=== PATIENT | female | born 1960 ===

== ENCOUNTER 2024-12-12 16:30 | Outpatient (AMB) | payer MEDICARE, MEDICAID, SELFPAY ==
--- NOTE | 2024-12-12 16:25 | A.OFFPC_ITS ---
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: No Accompanied by: Self / Same As Patient Allergies No Known Allergies Allergy (Verified 12/12/24 16:25) Tobacco use date assessed: 12/12/24 Fall risk assessment: No Falls in past year Last assessed Fall Risk: 12/12/24 Dental Screening Dental Screen Date: 12/12/24 Did you have a dental visit in the last 12 months?: Yes Did you have a dental problem in the last 6 months where you did not have access to dental care?: No Was dental information given to patient?: Patient has dentist HPI HPI Comments History of Present Illness Details History of Present Illness The patient is a 64-year-old female presenting for an annual physical examination and medication review for hypertension. Essential Hypertension: - The patient reports dissatisfaction wi th her current antihypertensive medication, losartan, due to perceived ineffectiveness and potential health concerns. - She is seeking a change in her medicat ion regimen. Hypothyroidism: - The patient is on thyroid medication f ollowing thyroid surgery. Rheumatoid Arthritis: -the patient states she has a history of rheumatoid arthritis but she has never taken any medication for it and she has never seen a digital content coordinator Hyperlipidemia: - The patient mentions hyperlipidemia as part of her medical history. Preventative Care: - The patient underwent a colonoscopy in September, which was normal. - She also had a mammogram in August, whic h was reported as normal. -she also had a Pap smear performed all her preventive maintenance was performed in [facility] to few months ago do not have medical records to review Health Maintenance - Colonoscopy performed in September with nor mal results. - Mammography conducted in August with nor mal findings. -cervical cancer screening conducted in August with normal findings Review of Systems 10-point ROS reviewed and negative excep t as noted in HPI Past Medical History - History of Essential Hypertension - History of Hypothyroidism - History of Rheumatoid Arthritis - History of Hyperlipidemia Physical Exam General: Well-appearing, in no acute distress. Vital signs: Within normal limits. HEENT: Normocephalic, atraumatic. PERRLA, EOMI. Conjunctiva clear, sclera anicteric. Oropharynx clear, mucous membranes moist. TMs intact bilaterally. Neck: Supple, no lymphadenopathy, no thyromegaly, no JVD or carotid bruits. Cardiovascular: RRR, normal S1/S2, no murmurs, rubs, or gallops. Peripheral pulses 2+ and symmetric. No edema. Respiratory: Lungs clear to auscultation bilaterally, no wheezes, rales, or rhonchi. Normal effort. Abdomen: Soft, non-tender, non-distended. Normoactive bowel sounds. No hepatosplenomegaly, no masses. MSK: Full range of motion, no joint swelling or deformity. Normal gait. Skin: Warm, dry, intact. No rashes, lesions, or pallor. Neuro: Alert and oriented x3. Cranial nerves II-XII intact. Strength 5/5 throughout. Sensation intact. Reflexes 2+ symmetric. Normal coordination and gait. Psych: Appropriate mood and affect. Normal judgment and insight. Discussion Notes I discussed with the patient the need to review her current medication regimen for hypertension, particularly the use of losartan, and the potential for changing her medication based on lab results. We also talked about the importance of regular screenings, including colonoscopy and mammography, which she has completed recently with normal results. Plan - Review and potentially adjust antihype rtensive medication based on lab results. - Continue thyroid medication and monito r thyroid function tests. - Encourage follow-up with a rheumatolog ist for rheumatoid arthritis management. - Maintain current management for hyperl ipidemia and monitor lipid levels. - Continue regular preventative screenin , including colonoscopy and mammography. Patient Instructions - Follow up for lab tests to review medi cation needs. - Continue taking thyroid medication as prescribed. - Schedule an appointment with a rheumat ologist for arthritis management. - Keep up with regular health screenings like colonoscopy and mammography. [facility] Family History Father No problems noted. Mother No problems noted. Social History Housing: Apartment Alcohol intake: current Alcohol intake frequency: does not drink Patient Tobacco Use Status: Never used Tobacco service: No Current occupational status: retired Cognitive needs: No Hearing needs: No Vision needs: Yes (rx glasses) Questionnaire PHQ-9 Over the last 2 weeks, how often have you been bothered by any of the following problems? 1. Little interest or pleasure in doing things: not at all 2. Feeling down, depressed, or hopeless: not at all 3. Trouble falling or staying asleep, or sleeping too much: not at all 4. Feeling tired or having little energy: not at all 5. Poor appetite or overeating: not at all 6. Feeling bad about yourself - or that you are a failure or have let yourself or your family down: not at all 7. Trouble concentrating on things, such as reading the newspaper or watching television: not at all 8. Moving or speaking so slowly that other people could have noticed. Or the opposite - being so fidgety or restless that you have been moving around a lot more than usual: not at all 9. Thoughts that you would be better off or of hurting yourself in some way: not at all Total score: 0 Depression Screening Interpretation: Negative Depression Screening Done: Yes Source: Developed by Drs. Alejandro Shanks, Stephanie Ribeiro, Chet Mcmillan and colleagues, with an educational esperanza from [employer]. Thrive Questionnaire Date Thrive assessed: 12/12/24 I am a: Patient What is your living situation today?: I have a steady place to live Within the past 12 months, did the food you bought not last and you didn't have the money to get more?: Never true Within the past 12 months, did you worry whether your food would run out before you got money to buy more?: Never true Do you have trouble paying for medicines?: No Do you have trouble getting transportation to medical appointments?: No Do you have trouble paying your heating and electricity bill?: No Do you have trouble taking care of your child, family member or friend?: No Do you have trouble with day-to-day activities such as bathing, preparing meals, shopping, managing finances, etc.?: No Are you currently unemployed and looking for a job?: No Are you interested in more education?: No Please select the resources that you would like help with: None Currently or been in a relationship where the following occur: No concerns reported THRIVE Score: 0 AUDIT C Alcohol Use Questionnaire (AUDIT-C) 1. How often do you have a drink containing alcohol?: Never 3. How often do you have six or more drinks on one occasion?: Never Total Score: 0 GUILLERMO-7 AMB Questionnaire GUILLERMO-7 Date GUILLERMO - 7 assessed: 12/12/24 Feeling nervous, anxious, or on edge: 0 = Not at all Not being able to stop or control worryin = Not at all Worrying too much about different things: 0 = Not at all Trouble relaxin = Not at all Being so restless that it is hard to sit still: 0 = Not at all Becoming easily annoyed or irritable: 0 = Not at all Feeling afraid as if something awful might happen: 0 = Not at all Total GUILLERMO-7 score (0-4 normal; 5-9 mild; 10-14 moderate; 15-21 severe): 0 Source: Developed by Drs. Alejandro Shanks, Stephanie Ribeiro, Chet Mcmillan and colleagues, with an educational esperanza from [employer]. Physical exam (Primary Care) Tobacco/Smoking Status: Tobacco use Status Tobacco use date assessed 12/12/24 12/12/24 16:28 Patient Tobacco Use Status Never used Tobacco 12/12/24 16:28 Depression Screening Interpretation: Negative Thrive Assessment: Date of Thrive Assessment Date Thrive assessed 12/12/24 12/12/24 16:30 Currently or been in a relationship where the following occur: No concerns reported Coding Level of Care Code New Pt Prev Care >65yr (70939) Diagnoses Establishing care with new doctor, encounter for Z76.89 Encounter for screening, unspecified Z13.9 Routine screening for STI (sexually transmitted infection) Z11.3 Screening for HIV (human immunodeficiency virus) Z11.4 Screening for depression Z13.31 Screening for diabetes mellitus Z13.1 Screening for lipoid disorders Z13.220 Counseling, unspecified Z71.9 Hypertension I10 Hypothyroid E03.9 Rheumatoid arthritis M06.9 Hyperlipidemia E78.5 Osteoporosis screening Z13.820 Assessment & Plan Assessment & Plan (1) Establishing care with new doctor, encounter for: Code(s): Z76.89 - Persons encountering health services in other specified circumstances (2) Encounter for screening, unspecified: Code(s): Z13.9 - Encounter for screening, unspecified (3) Routine screening for STI (sexually transmitted infection): Code(s): Z11.3 - Encounter for screening for infections with a predominantly sexual mode of transmission (4) Screening for HIV (human immunodeficiency virus): Code(s): Z11.4 - Encounter for screening for human immunodeficiency virus [HIV] (5) Screening for depression: Code(s): Z13.31 - Encounter for screening for depression (6) Screening for diabetes mellitus: Code(s): Z13.1 - Encounter for screening for diabetes mellitus (7) Screening for lipoid disorders: Code(s): Z13.220 - Encounter for screening for lipoid disorders (8) Counseling, unspecified: Code(s): Z71.9 - Counseling, unspecified (9) Hypertension: Code(s): I10 - Essential (primary) hypertension (10) Hypothyroid: Code(s): E03.9 - Hypothyroidism, unspecified (11) Rheumatoid arthritis: Code(s): M06.9 - Rheumatoid arthritis, unspecified (12) Hyperlipidemia: Code(s): E78.5 - Hyperlipidemia, unspecified (13) Osteoporosis screening: Code(s): Z13.820 - Encounter for screening for osteoporosis Plan Orders: Orders Comprehensive Met. Panel Today Z13.9 - Encounter for screening, unspecified, Z76.89 - Persons encountering health services in other specified circumstances Hemoglobin A1c Today Z13.9 - Encounter for screening, unspecified, Z76.89 - Persons encountering health services in other specified circumstances Hepatitis B Surface Antibody Today Z13.9 - Encounter for screening, unspecified, Z76.89 - Persons encountering health services in other specified circumstances Hepatitis B Surface Antigen Today Z13.9 - Encounter for screening, unspecified, Z76.89 - Persons encountering health services in other specified circumstances Hepatitis C Antibody Today Z13.9 - Encounter for screening, unspecified, Z76.89 - Persons encountering health services in other specified circumstances Lipid Panel Today Z13.9 - Encounter for screening, unspecified, Z76.89 - Persons encountering health services in other specified circumstances TSH reflex Free T4 Today Z13.9 - Encounter for screening, unspecified, Z76.89 - Persons encountering health services in other specified circumstances Microalbumin, Random (w Creat) Today Z13.9 - Encounter for screening, unspecified, Z76.89 - Persons encountering health services in other specified circumstances XR DEXA axial skeleton Today Z13.820 - Encounter for screening for osteoporosis Complete Blood Count Auto Diff Today Z13.9 - Encounter for screening, unspecified, Z76.89 - Persons encountering health services in other specified circumstances HIV Ab/Ag Today Z13.9 - Encounter for screening, unspecified, Z76.89 - Persons encountering health services in other specified circumstances Magnesium Today Z13.9 - Encounter for screening, unspecified, Z76.89 - Persons encountering health services in other specified circumstances UA CC w/rflx Micro + Cult Today Z13.9 - Encounter for screening, unspecified, Z76.89 - Persons encountering health services in other specified circumstances Vitamin B12 and Folate Today Z13.9 - Encounter for screening, unspecified, Z76.89 - Persons encountering health services in other specified circumstances Vitamin D 1,25 dihydroxy Today Z13.9 - Encounter for screening, unspecified, Z76.89 - Persons encountering health services in other specified circumstances ECG 12 lead EKG Today I10 - Essential (primary) hypertension Syphilis Screen Today Z13.9 - Encounter for screening, unspecified
[2024-12-12 16:38] VITALS: BP 160/88; PULSE 81; RESP 16; TEMP 36.4; O2SAT 96; BMI 29.0
== END 2024-12-12 16:55 | disposition home or self-care (01) ==
LOC: HO.HMCFMS 16:30
PROVIDERS: PCP Student in an Organized Health Care Education/Training Program; Visit Provider Student in an Organized Health Care Education/Training Program
DX: Z00.00 Encounter for general adult medical examination without abnormal findings (principal); I10 Essential (primary) hypertension; E03.9 Hypothyroidism, unspecified; M06.9 Rheumatoid arthritis, unspecified; E78.5 Hyperlipidemia, unspecified; Z13.820 Encounter for screening for osteoporosis

== ENCOUNTER → 2024-12-12 16:30 | Outpatient (BNVA) | payer MEDICARE, MEDICAID, SELFPAY | PROVIDERS: PCP Student in an Organized Health Care Education/Training Program; Visit Provider Student in an Organized Health Care Education/Training Program | DX: Z00.00 Encounter for general adult medical examination without abnormal findings (principal); I10 Essential (primary) hypertension; E03.9 Hypothyroidism, unspecified; M06.9 Rheumatoid arthritis, unspecified; E78.5 Hyperlipidemia, unspecified; Z13.31 Encounter for screening for depression; Z13.39 Encounter for screening examination for other mental health and behavioral disorders | CPT/HCPCS: 96127; 99387 ==

== ENCOUNTER 2024-12-17 09:53 | Outpatient (REF) | payer MEDICARE, MEDICAID, SELFPAY ==
[2024-12-17 13:29] LABS: Appearance Urine Clear; Glucose Urine UA Negative (Negative); PH 7.0 (5.0-9.0); Specific Gravity - Urine 1.020 (1.005-1.025)
[2024-12-17 13:39] LABS: MANUAL DIFF FLAG NO
[2024-12-17 13:42] LABS: Hematocrit 43.8 % (37.0-47.0); Hemoglobin 14.5 g/dl (12.0-16.0); Imm Gran Abs Auto 0.01 X10*3/uL (0.00-0.03); Imm Gran Pct Auto 0.1 % (0.0-0.4); Lymphocytes Absolute Auto 3.9 X10*3/uL (1.2-4.9); Mean Corpuscular HGB Conc 33.1 g/dl (31.0-35.0); Mean Corpuscular Hemoglobin 30.6 pg (27.0-33.0); Mean Corpuscular Volume 92.4 fL (80.0-98.0); NRBC Abs Auto 0.000 X10*3/uL (0.0-0.012); NRBC Pct Auto 0.0 /100WBC (0.0-0.2); Platelet Count 308 X10*3/uL (160-400); Red Blood Count 4.74 X10*6/uL (4.20-5.50); White Blood Count 6.8 X10*3/uL (4.8-10.8)
[2024-12-17 14:08] LABS: Hemoglobin A1C 128.4789 umol/L; Total Hemoglobin (HGBA1C) 3718.6350 umol/L
[2024-12-17 14:12] LABS: Microalbum/Creatinine Ratio Ur 8.7 ug/mg cr (<30)
[2024-12-17 14:36] LABS: Alanine Aminotransferase 26 U/L (0-31); Albumin Level 4.3 g/dL (3.5-5.0); Alkaline Phosphatase 116 U/L (39-117); Anion Gap 11 (12-20); Aspartate Amino Transferase 38 U/L (5-31); Blood Urea Nitrogen 15 mg/dL (9-16); Calcium 9.8 mg/dL (8.4-10.2); Carbon Dioxide 29 mmol/L (22-29); Chloride 105 mmol/L (96-108); Cholesterol 379 mg/dL (<200); Estimated Glomerular Filt Rate 58; HDL Cholesterol 41 mg/dL (>40); Magnesium 2.5 mg/dL (1.6-2.6); Potassium 4.7 mmol/L (3.3-5.1); Sodium 140 mmol/L (135-145); Total Protein 7.8 g/dL (6.5-8.0); Triglycerides 337 mg/dL (<150)
[2024-12-17 14:50] LABS: Folate 11.8 ng/mL (> or = 4.0); Vitamin B12 574 pg/mL (200-900)
[2024-12-17 15:16] LABS: Free T4 (Free Thyroxine) 1.01 ng/dL (0.71-1.85)
[2024-12-18 08:17] LABS: HBS Num1 0.00 mIU/mL (0-7.99); HBsAGNum1 0.43 S/CO (0.00-0.99); HIV Num 1 0.07 S/CO (0.00-0.99); Hepatitis B Surface Antigen Negative (Negative); ~HepC Num1 0.14 S/CO (0.00-0.79); ~Hepatitis B Surface Antibody NONREACTIVE (Nonreactive); ~Hepatitis C Antibody Nonreactive (Nonreactive)
[2024-12-18 09:08] LABS: Syphilis Screen Nonreactive (Nonreactive)
[2024-12-24 15:54] LABS: VITAMIN D (1,25 OH) D3 72 pg/mL; Vit D (1,25-Dihydroxy) Total 72 pg/mL (18-72); Vitamin D (1,25 OH) D2 <8 pg/mL
== END 2024-12-17 09:54 | disposition home or self-care (01) ==
LOC: HO.HMGCLDS 09:53
PROVIDERS: Visit Provider Student in an Organized Health Care Education/Training Program
DX: Z13.89 Encounter for screening for other disorder (principal); Z76.89 Persons encountering health services in other specified circumstances; Z13.6 Encounter for screening for cardiovascular disorders; Z13.1 Encounter for screening for diabetes mellitus; Z11.4 Encounter for screening for human immunodeficiency virus [HIV]; Z13.29 Encounter for screening for other suspected endocrine disorder
CPT/HCPCS: 36415; 80053; 80061; 81003; 82043; 82570; 82607; 82652; 82746; 83036; 83735; 84439; 84443; 85025; 86706; 86780; 86803; 87340; 87389

== ENCOUNTER 2024-12-31 13:40 | Outpatient (AMB) | payer MEDICARE, MEDICAID, SELFPAY ==
[2024-12-31 14:07] VITALS: BP 148/90; PULSE 82; TEMP 36.6; O2SAT 96; BMI 28.7
--- NOTE | 2024-12-31 14:07 | A.OFFPC_ITS ---
Vital Signs 12/31/24 14:07 Height 5 ft 5.16 in Weight 173 lb 8 oz BMI 28.7 BP 148/90 H Blood Pressure Location Lt brachial Position Sitting Pulse 82 Pulse Source Pulse Oximeter Temp 97.9 F Temp Source Oral Pulse Oximetry (%) 96 Oxygen Delivery Method Room Air Intake Visit Reasons: r/s from 11:15 am Intake Note: physical want to change losartan for bp med. 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 Accompanied by: Self / Same As Patient Allergies No Known Allergies Allergy (Verified 12/31/24 14:07) Tobacco use date assessed: 12/31/24 Fall risk assessment: No Falls in past year Last assessed Fall Risk: 12/31/24 Dental Screening Dental Screen Date: 12/31/24 Did you have a dental visit in the last 12 months?: Yes Did you have a dental problem in the last 6 months where you did not have access to dental care?: No Was dental information given to patient?: Patient has dentist HPI HPI Comments History of Present Illness Details History of Present Illness The patient is a 64-year-old female presenting with hypertension management and evaluation of headaches. Hypertension: - The patient has been experiencing elev ated blood pressure, which may be related to stress. - She was previously on Losartan but exp ressed concerns about its effects. - Amlodipine 10 mg was discussed as a po tential treatment option. - The patient was advised to monitor her blood pressure at home using a machine. Headaches: - The patient reports a long history of headaches, which cause dizziness and a sensation of falling. - Meclizine was prescribed to manage ass ociated vertigo. Hyperlipidemia: - The patient has a history of elevated cholesterol and triglycerides. - She is currently on atorvastatin 40 mg , Hypothyroidism: - The patient's thyroid hormone levels a re significantly elevated, indicating hypothyroidism. - Levothyroxine dosage was increased to 100 mcg to address this issue. - Follow-up blood tests were scheduled f or six weeks to reassess thyroid function. Vertigo: - The patient experiences vertigo, which is being managed with meclizine. Review of Systems - Cardiovascular: Reports elevated blood pressure. Denies chest pain. - Neurological: Reports headaches and di zziness. Denies syncope. 10-point ROS reviewed and negative excep t as noted in HPI Past Medical History - Hypertension - Hyperlipidemia - Hypothyroidism - Vertigo Health Maintenance - Blood pressure monitoring at home was recommended. - Follow-up blood tests for thyroid func tion in six weeks. Physical Exam General: Well-appearing, in no acute distress. Vital signs: Blood pressure is elevated. HEENT: Normocephalic, atraumatic. PERRLA, EOMI. Conjunctiva clear, sclera anicteric. Oropharynx clear, mucous membranes moist. TMs intact bilaterally. Neck: Supple, no lymphadenopathy, no thyromegaly, no JVD or carotid bruits. Cardiovascular: RRR, normal S1/S2, no murmurs, rubs, or gallops. Peripheral pulses 2+ and symmetric. No edema. Respiratory: Lungs clear to auscultation bilaterally, no wheezes, rales, or rhonchi. Normal effort. Abdomen: Soft, non-tender, non-distended. Normoactive bowel sounds. No hepatosplenomegaly, no masses. MSK: Full range of motion, no joint swelling or deformity. Normal gait. Skin: Warm, dry, intact. No rashes, lesions, or pallor. Neuro: Alert and oriented x3. Cranial nerves II-XII intact. Strength 5/5 throughout. Sensation intact. Reflexes 2+ symmetric. Normal coordination and gait. Psych: Appropriate mood and affect. Normal judgment and insight. Plan 1. Hypertension - Amlodipine 10 mg was prescribed to man age blood pressure. - The patient was instructed to monitor blood pressure at home twice daily, in the morning and evening, and report the best of three readings. 2. Headaches - Meclizine was prescribed to manage mariluz tigo associated with headaches. 3. Hyperlipidemia - Atorvastatin 40 mg was continued, with a potential increase to 80 mg if lipid levels do not improve. 4. Hypothyroidism - Levothyroxine dosage was increased to 100 mcg to address elevated thyroid hormone levels. - Follow-up blood tests were scheduled f or six weeks to reassess thyroid function. 5. Vertigo - Meclizine was prescribed to manage mariluz tigo symptoms. Discussion Notes I discussed with the patient the management of her hypertension, including the prescription of Amlodipine and the importance of home blood pressure monitoring. We also addressed her headaches and associated vertigo, prescribing Meclizine for symptom relief. The patient's hyperlipidemia management was reviewed, with atorvastatin continued and potential dosage adjustments discussed. Her hypothyroidism was addressed by increasing her levothyroxine dosage, with follow-up blood tests planned to monitor thyroid function. We emphasized the importance of these interventions and scheduled a follow-up visit in two weeks to reassess her blood pressure management. Patient was informed and verbally consented to the use of an ambient scribe for clinic note documentation during this visit. Patient Instructions - Take Amlodipine 10 mg daily for blood pressure management. - Monitor blood pressure at home twice d aily, in the morning and evening, and report the best of three readings. - Take Meclizine as prescribed for verti go. - Continue atorvastatin 40 mg for choles terol management. - Take levothyroxine 100 mcg on an empty stomach, wait 30 minutes before eating or taking other medications. - Return for follow-up in two weeks to [facility] blood pressure management. Total time spent caring for the patient today was 30 minutes. This includes time spent before the visit reviewing the chart, time spent documenting, and time spent reviewing laboratory results, medications, performing a medically necessary evaluation, counseling on diagnoses, care coordination, ordering appropriate medications, [facility] Family History Father No problems noted. Mother No problems noted. Social History Housing: Apartment Alcohol intake: current Alcohol intake frequency: does not drink Patient Tobacco Use Status: Never used Tobacco service: No Current occupational status: retired Cognitive needs: No Hearing needs: No Vision needs: Yes (rx glasses) Questionnaire PHQ-9 Over the last 2 weeks, how often have you been bothered by any of the following problems? 1. Little interest or pleasure in doing things: not at all 2. Feeling down, depressed, or hopeless: not at all 3. Trouble falling or staying asleep, or sleeping too much: not at all 4. Feeling tired or having little energy: not at all 5. Poor appetite or overeating: not at all 6. Feeling bad about yourself - or that you are a failure or have let yourself or your family down: not at all 7. Trouble concentrating on things, such as reading the newspaper or watching television: not at all 8. Moving or speaking so slowly that other people could have noticed. Or the opposite - being so fidgety or restless that you have been moving around a lot more than usual: not at all 9. Thoughts that you would be better off or of hurting yourself in some way: not at all Total score: 0 Depression Screening Interpretation: Negative Depression Screening Done: Yes Source: Developed by Drs. Alejandro Shanks, Stephanie Ribeiro, Chet Mcmillan and colleagues, with an educational esperanza from [email or web address]. Thrive Questionnaire Date Thrive assessed: 12/31/24 I am a: Patient What is your living situation today?: I have a steady place to live Within the past 12 months, did the food you bought not last and you didn't have the money to get more?: Never true Within the past 12 months, did you worry whether your food would run out before you got money to buy more?: Never true Do you have trouble paying for medicines?: No Do you have trouble getting transportation to medical appointments?: No Do you have trouble paying your heating and electricity bill?: No Do you have trouble taking care of your child, family member or friend?: No Do you have trouble with day-to-day activities such as bathing, preparing meals, shopping, managing finances, etc.?: No Are you currently unemployed and looking for a job?: No Are you interested in more education?: No Please select the resources that you would like help with: None Currently or been in a relationship where the following occur: No concerns reported THRIVE Score: 0 AUDIT C Alcohol Use Questionnaire (AUDIT-C) 1. How often do you have a drink containing alcohol?: Never Total Score: 0 GUILLERMO-7 AMB Questionnaire GUILLERMO-7 Date GUILLERMO - 7 assessed: 12/31/24 Feeling nervous, anxious, or on edge: 1 = Several days Not being able to stop or control worryin = Several days Worrying too much about different things: 1 = Several days Trouble relaxin = Nearly every day Being so restless that it is hard to sit still: 0 = Not at all Becoming easily annoyed or irritable: 1 = Several days Feeling afraid as if something awful might happen: 0 = Not at all Total GUILLERMO-7 score (0-4 normal; 5-9 mild; 10-14 moderate; 15-21 severe): 7 Source: Developed by Stephanie Vazquez Kurt Kroenke and colleagues, with an educational esperanza from [email or web address]. Physical exam (Primary Care) Vital Signs: Last Vital Signs Temp 97.9 F 12/31/24 14:07 Pulse 82 12/31/24 14:07 BP 148/90 H 12/31/24 14:07 Pulse Ox 96 12/31/24 14:07 Oxygen Delivery Method Room Air 12/31/24 14:07 BMI result Body Mass Index 28.7 Tobacco/Smoking Status: Tobacco use Status Tobacco use date assessed 12/31/24 12/31/24 14:10 Patient Tobacco Use Status Never used Tobacco 12/31/24 14:10 PHQ-9: PHQ-9 Score PHQ-9: Total score 0 12/31/24 14:10 Depression Screening Interpretation: Negative Thrive Assessment: Date of Thrive Assessment Date Thrive assessed 12/31/24 12/31/24 14:10 Currently or been in a relationship where the following occur: No concerns reported Coding Level of Care Code Est Pt Level 4 (44510) Diagnoses Hypertension I10 Headache R51.9 Hyperlipidemia E78.5 Subclinical hypothyroidism E03.8 Vertigo R42 Assessment & Plan Assessment & Plan (1) Hypertension: Code(s): I10 - Essential (primary) hypertension (2) Headache: Code(s): R51.9 - Headache, unspecified (3) Hyperlipidemia: Code(s): E78.5 - Hyperlipidemia, unspecified (4) Subclinical hypothyroidism: Code(s): E03.8 - Other specified hypothyroidism (5) Vertigo: Code(s): R42 - Dizziness and giddiness Plan Medications: New meclizine 25 mg PO TID 30 tabs 0RF amlodipine 10 mg PO DAILY 30 tabs 0RF blood pressure monitor As directed 1 ea 0RF
== END 2024-12-31 14:39 | disposition home or self-care (01) ==
LOC: HO.HMCFMS 13:42
PROVIDERS: PCP Student in an Organized Health Care Education/Training Program; Visit Provider Student in an Organized Health Care Education/Training Program
DX: I10 Essential (primary) hypertension (principal); R51.9 Headache, unspecified; E78.5 Hyperlipidemia, unspecified; E03.8 Other specified hypothyroidism; R42 Dizziness and giddiness

== ENCOUNTER → 2024-12-31 13:40 | Outpatient (BNVA) | payer MEDICARE, MEDICAID, SELFPAY | PROVIDERS: PCP Student in an Organized Health Care Education/Training Program; Visit Provider Student in an Organized Health Care Education/Training Program | DX: I10 Essential (primary) hypertension (principal); R51.9 Headache, unspecified; E78.5 Hyperlipidemia, unspecified; E03.8 Other specified hypothyroidism; R42 Dizziness and giddiness; Z79.899 Other long term (current) drug therapy; Z13.31 Encounter for screening for depression; Z13.39 Encounter for screening examination for other mental health and behavioral disorders | CPT/HCPCS: 96127; 99212 ==

== ENCOUNTER 2025-01-14 13:46 | Outpatient (AMB) | payer MEDICARE, MEDICAID, SELFPAY ==
[2025-01-14 13:49] VITALS: BP 139/75; PULSE 84; RESP 16; TEMP 36.3; O2SAT 92; BMI 28.4
--- NOTE | 2025-01-14 13:49 | A.OFFPC_ITS ---
Vital Signs 01/14/25 13:49 Height 5 ft 5.16 in Weight 171 lb 8 oz BMI 28.4 BP 139/75 Blood Pressure Location Lt brachial Position Sitting Respiration 16 Pulse 84 Pulse Source Pulse Oximeter Temp 97.3 F Temp Source Oral Pulse Oximetry (%) 92 Oxygen Delivery Method Room Air Intake Visit Reasons: 2 week follow up Intake Note: physical want to change losartan for bp med. 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: No Accompanied by: Self / Same As Patient Allergies No Known Allergies Allergy (Verified 01/14/25 13:50) Tobacco use date assessed: 01/14/25 Fall risk assessment: No Falls in past year Last assessed Fall Risk: 12/31/24 Dental Screening Dental Screen Date: 12/31/24 Did you have a dental visit in the last 12 months?: Yes Did you have a dental problem in the last 6 months where you did not have access to dental care?: No Was dental information given to patient?: Patient has dentist HPI HPI Comments History of Present Illness Details Consent Patient was informed and verbally consented to the use of an ambient scribe for clinic note documentation during this visit. History of Present Illness The patient is a 64-year-old female presenting with hypertension management and medication review. Essential Hypertension: The patient has been experiencing hypertension, with a recent blood pressure reading of 139/75 mmHg, improved from 148/90 mmHg. She is currently on amlodipine 10 mg, which has been effective in lowering her blood pressure. There were no reports of dizziness or syncope despite a low reading of 107 mmHg at home. Hypercholesterolemia: The patient has a history of hypercholesterolemia and has been on atorvastatin 80 mg for over five years. She reports discomfort with the medication and is considering a change due to side effects. Hypothyroidism: The patient has hypothyroidism and was advised to increase her thyroid medication to 100 mg, although she has not yet received the new dosage. Medications: - Amlodipine 10 mg for hypertension - Atorvastatin 80 mg for hypercholestero lemia - Levothyroxine for hypothyroidism Review of Systems - Cardiovascular: Denies dizziness or sy ncope. - Gastrointestinal: Reports nausea and v omiting post-anesthesia. 10-point ROS reviewed and negative excep t as noted in HPI Past Medical History Health Maintenance Physical Exam General: Well-appearing, in no acute distress. Vital signs: Blood pressure 139/75, improved from previous 148/90. HEENT: Normocephalic, atraumatic. PERRLA, EOMI. Conjunctiva clear, sclera anicteric. Oropharynx clear, mucous membranes moist. TMs intact bilaterally. Neck: Supple, no lymphadenopathy, no thyromegaly, no JVD or carotid bruits. Cardiovascular: RRR, normal S1/S2, no murmurs, rubs, or gallops. Peripheral pulses 2+ and symmetric. No edema. Respiratory: Lungs clear to auscultation bilaterally, no wheezes, rales, or rhonchi. Normal effort. Abdomen: Soft, non-tender, non-distended. Normoactive bowel sounds. No hepatosplenomegaly, no masses. MSK: Full range of motion, no joint swelling or deformity. Normal gait. Skin: Warm, dry, intact. No rashes, lesions, or pallor. Neuro: Alert and oriented x3. Cranial nerves II-XII intact. Strength 5/5 throughout. Sensation intact. Reflexes 2+ symmetric. Normal coordination and gait. Psych: Appropriate mood and affect. Normal judgment and insight. Plan 1. Essential Hypertension - Continue current dosage of amlodipine 10 mg as it effectively manages blood pressure. 2. Hypercholesterolemia - Consider changing atorvastatin due to reported discomfort, pending further evaluation. 3. Hypothyroidism - Increase levothyroxine dosage to 100 m g as previously advised, ensure prescription is filled. Discussion Notes I discussed with the patient the importance of continuing her current medications, particularly amlodipine for hypertension, which has shown effectiveness. We also reviewed the potential need to adjust her atorvastatin due to side effects and confirmed the plan to increase her thyroid medication dosage. Patient Instructions - Continue taking amlodipine 10 mg daily . - Monitor blood pressure regularly and r eport any significant changes. - Follow up on atorvastatin side effects and discuss potential alternatives. - Ensure levothyroxine prescription is f illed and start new dosage as advised. Medical Decision Making The decision to continue amlodipine was based on its effectiveness in managing the patient's blood pressure, as evidenced by improved readings. Considering the patient's discomfort with atorvastatin, a potential change in medication is warranted, pending further evaluation. The increase in levothyroxine dosage is necessary to manage hypothyroidism effectively, and ensuring the prescription is filled is a priority. Total time spent caring for the patient today was 30 minutes. This includes time spent before the visit reviewing the chart, time spent documenting, and time spent reviewing laboratory results, diagnostic imaging, medications, performing a medically necessary evaluation, counseling on diagnoses, care coordination, ordering appropriate tests, ordering appropriate medications. [facility] Family History Father No problems noted. Mother No problems noted. Social History Housing: Apartment Alcohol intake: current Alcohol intake frequency: does not drink Patient Tobacco Use Status: Never used Tobacco service: No Current occupational status: retired Cognitive needs: No Hearing needs: No Vision needs: Yes (rx glasses) Questionnaire Thrive Questionnaire Date Thrive assessed: 12/12/24 I am a: Patient What is your living situation today?: I have a steady place to live Within the past 12 months, did the food you bought not last and you didn't have the money to get more?: Never true Within the past 12 months, did you worry whether your food would run out before you got money to buy more?: Never true Do you have trouble paying for medicines?: No Do you have trouble getting transportation to medical appointments?: No Do you have trouble paying your heating and electricity bill?: No Do you have trouble taking care of your child, family member or friend?: No Are you currently unemployed and looking for a job?: No Are you interested in more education?: No Please select the resources that you would like help with: None Currently or been in a relationship where the following occur: No concerns reported THRIVE Score: 0 GUILLERMO-7 AMB Questionnaire GUILLERMO-7 Date GUILLERMO - 7 assessed: 12/31/24 Source: Developed by Drs. Alejandro Shanks, Stephanie Ribeiro, Chet Mcmillan and colleagues, with an educational esperanza from [employer]. Physical exam (Primary Care) Vital Signs: Last Vital Signs Temp 97.3 F 01/14/25 13:49 Pulse 84 01/14/25 13:49 Resp 16 01/14/25 13:49 BP 139/75 01/14/25 13:49 Pulse Ox 92 01/14/25 13:49 Oxygen Delivery Method Room Air 01/14/25 13:49 BMI result Body Mass Index 28.4 Tobacco/Smoking Status: Tobacco use Status Tobacco use date assessed 01/14/25 01/14/25 13:59 Patient Tobacco Use Status Never used Tobacco 01/14/25 13:59 Thrive Assessment: Date of Thrive Assessment Date Thrive assessed 12/12/24 01/14/25 13:59 Currently or been in a relationship where the following occur: No concerns reported Coding Level of Care Code Est Pt Level 4 (57089) Diagnoses Hypothyroidism E03.9 Hypercholesterolemia E78.00 Essential hypertension I10 Assessment & Plan Assessment & Plan (1) Hypothyroidism: Code(s): E03.9 - Hypothyroidism, unspecified (2) Hypercholesterolemia: Code(s): E78.00 - Pure hypercholesterolemia, unspecified (3) Essential hypertension: Code(s): I10 - Essential (primary) hypertension Plan Medications: New ezetimibe 10 mg PO DAILY 90 tabs 0RF aspirin (Adult Aspirin Regimen) 81 mg PO DAILY 90 tabs 0RF carboxymethylcellulose sodium 0.5% (Refresh Tears) 1 drp ophthalmic (eye) TID 30 mL 0RF atorvastatin (Lipitor) 80 mg (2 x 40 mg) PO DAILY 90 tabs 0RF fluticasone propionate 50 mcg/actuation (Allergy Relief (fluticasone)) administer into each nostril 1 spray intranasal DAILY 16 grams 0RF acetaminophen ER 1,300 mg (2 x 650 mg) PO Q12H 90 tabs 0RF levothyroxine (Synthroid) 100 mcg PO DAILY 90 tabs 0RF Refilled meclizine 25 mg PO TID 90 tabs 0RF amlodipine 10 mg PO DAILY 90 tabs 0RF
== END 2025-01-14 14:20 | disposition home or self-care (01) ==
LOC: HO.HMCFMS 13:47
PROVIDERS: PCP Student in an Organized Health Care Education/Training Program; Visit Provider Student in an Organized Health Care Education/Training Program
DX: E03.9 Hypothyroidism, unspecified (principal); E78.00 Pure hypercholesterolemia, unspecified; I10 Essential (primary) hypertension

== ENCOUNTER → 2025-01-14 13:46 | Outpatient (BNVA) | payer MEDICARE, MEDICAID, SELFPAY | PROVIDERS: PCP Student in an Organized Health Care Education/Training Program; Visit Provider Student in an Organized Health Care Education/Training Program | DX: E03.9 Hypothyroidism, unspecified (principal); E78.00 Pure hypercholesterolemia, unspecified; I10 Essential (primary) hypertension; Z79.899 Other long term (current) drug therapy | CPT/HCPCS: 99212 ==